=== PATIENT | male | born 1995 | race African-American/Black ===

== ENCOUNTER 2017-10-28 23:57 | Emergency (ER) | payer MEDICAID ==
[~2017-10-28] VITALS: Ht 172.7 cm; Wt 72.0 kg
[2017-10-29 00:07] VITALS: BP 142/88
== END 2017-10-29 | disposition left against medical advice (07) ==
LOC: ER 23:57
DX: F10.129 Alcohol abuse with intoxication, unspecified (principal); Z53.21 Procedure and treatment not carried out due to patient leaving prior to being seen by health care provider

== ENCOUNTER 2020-05-14 20:28 | Emergency (ER) | payer MEDICAID ==
[~2020-05-14] VITALS: Ht 172.7 cm; Wt 73.0 kg
[2020-05-14] MEDS ORDERED: SODIUM CHLORIDE 0.9% 1,000 ML IV ONE (21:09)
[2020-05-14 21:58] LABS: BASOPHILS % 0.5 % (0.0-2.0); EOSINOPHILS % 0.2 % (0.0-5.0); HEMATOCRIT. 44.7 % (42.0-52.0); HEMOGLOBIN. 15.7 g/dL (14.0-18.0); LYMPHOCYTES % 17.3 % (20.0-50.0); MEAN CORPUSCULAR HEMOGLOBIN 33.8 pg (28.0-32.0); MEAN CORPUSCULAR VOLUME 96.5 fL (80.0-94.0); MEAN PLATELET VOLUME 8.9 fl (7.4-10.4); MONOCYTES % 9.7 % (2.0-8.0); NEUTROPHILS % 72.3 % (40.0-76.0); PLATELET 328 x1000/uL (130-400); RED BLOOD CELL COUNT 4.63 mill/uL (4.7-6.1); RED CELL DISTRIBUTION WIDTH 13.1 % (11.6-14.6)
[2020-05-14 22:01] LABS: CHLORIDE 105 mEq/L (98-107)
[2020-05-14 22:06] LABS: ETHANOL BLOOD 154 mg/dL
[2020-05-14] MEDS ORDERED: ACETAMINOPHEN 325MG TABLET PO ONE (22:45)
[2020-05-14 22:58] LABS: *AMPHETAMINES SCREEN URINE PRESUMTIVE POSITIVE (NEGATIVE); *BARBITURATES SCREEN URINE NEGATIVE (NEGATIVE); *BENZODIAZEPINES SCREEN URINE NEGATIVE (NEGATIVE); *COCAINE SCREEN URINE NEGATIVE (NEGATIVE)
[2020-05-14 22:59] LABS: CANNABINOID URINE SCREEN NEGATIVE (NEGATIVE); METHADONE URINE SCREEN NEGATIVE (NEGATIVE); OPIATES URINE SCREEN NEGATIVE (NEGATIVE); PHENCYCLIDINE URINE SCREEN NEGATIVE (NEGATIVE)
[2020-05-14 23:00] LABS: CLARITY URINE CLEAR (CLEAR); COLOR URINE YELLOW (YELLOW); KETONES URINE NEGATIVE (NEGATIVE); LEUKOCYTE ESTERASE URINE NEGATIVE (NEGATIVE); NITRITE URINE NEGATIVE (NEGATIVE); OCCULT BLOOD URINE NEGATIVE (NEGATIVE); PH URINE 5.5 (4.5-8.0); PROTEIN URINE NEGATIVE (NEGATIVE); SPECIFIC GRAVITY URINE 1.007 (1.005-1.030); UROBILINOGEN URINE 0.2 E.U./dL (0.2-1.0)
[2020-05-15] MEDS ORDERED: IBUPROFEN 800MG TABLET PO ONE (07:30)
[2020-05-15 08:00] VITALS: BP 133/92
== END 2020-05-15 08:30 | disposition home or self-care (01) ==
LOC: ER 20:28
DX: F15.10 Other stimulant abuse, uncomplicated (principal); F10.129 Alcohol abuse with intoxication, unspecified; S93.491A Sprain of other ligament of right ankle, initial encounter; F17.210 Nicotine dependence, cigarettes, uncomplicated; F12.10 Cannabis abuse, uncomplicated; Y90.6 Blood alcohol level of 120-199 mg/100 ml; X58.XXXA Exposure to other specified factors, initial encounter; Y93.89 Activity, other specified; Y92.488 Other paved roadways as the place of occurrence of the external cause
CPT/HCPCS: 36415; 73610; 80053; 80305; 80307; 80320; 80329; 81003; 85025; 93005; 96360; 96361; 99285; J7030; G0480

== ENCOUNTER 2022-03-03 08:43 | Emergency (ER) | payer MEDICAID ==
[~2022-03-03] VITALS: Ht 175.3 cm; Wt 80.0 kg
[2022-03-03 08:46] VITALS: BP 150/94
[2022-03-03] MEDS ORDERED: ONDANSETRON HCL 4MG/2ML INJ IV ONE (09:00)
[2022-03-03] MEDS ORDERED: SODIUM CHLORIDE 0.9% 1,000 ML IV ONE (09:00)
== END 2022-03-03 09:22 | disposition left against medical advice (07) ==
LOC: ER 08:57
DX: T40.691A Poisoning by other narcotics, accidental (unintentional), initial encounter (principal); Y92.89 Other specified places as the place of occurrence of the external cause; F12.10 Cannabis abuse, uncomplicated; F15.10 Other stimulant abuse, uncomplicated
CPT/HCPCS: 99283; J7030